=== PATIENT | female | born 1945 | race Caucasian/White ===

== ENCOUNTER 2019-12-06 20:18 | Emergency (ER) | payer MEDICARE, BC ==
[2019-12-06] MEDS: Sodium Chloride 0.9% 1,000 ML IV ONE (20:53)
[2019-12-06] MEDS: Ondansetron 4 MG/2 ML SDV IVPUSH ONE (20:53)
[2019-12-06] MEDS: Ketorolac 30 MG/ML SDV IVPUSH ONE (20:53)
--- NOTE | 2019-12-06 20:57 | EDM.PDOC ---
ED HPI GENERAL MEDICAL PROBLEM - General Chief Complaint: General Stated Complaint: nausea, abdominal pain Time Seen by Provider: 12/06/19 20:21 Source of Information: Reports: Patient History Limitations: Reports: No Limitations - History of Present Illness INITIAL COMMENTS - FREE TEXT/NARRATIVE: Pt seen in clinic today for UTI Started on Macrobid Now with N/V and mild flank pain No fever Onset: Today, Gradual Duration: Intermittent Location: Reports: Generalized Associated Symptoms: Reports: Nausea/Vomiting Lower Abdominal Pain Score (Numeric/FACES): 8 - Related Data Allergies Allergy/AdvReac Type Severity Reaction Status Date / Time No Known Drug Allergies Allergy Unknown unknown Verified 12/06/19 20:23 Home Meds: Home Meds LORazepam [Lorazepam] 0.5 mg PO ASDIRECTED PRN 12/06/19 [History] Levothyroxine [Synthroid] 88 mcg PO DAILY 12/06/19 [History] Multivitamin [Daily Multiple Vitamin] 1 tab PO DAILY 12/06/19 [History] Nitrofurantoin Monohyd/M-Cryst [Macrobid 100 mg Capsule] 100 mg PO BID 12/06/19 [History] traZODone HCl [Trazodone HCl] 100 mg PO BEDTIME 12/06/19 [History] Past Medical History HEENT History: Reports: None Psychiatric History: Reports: Anxiety Endocrine/Metabolic History: Reports: Hyperthyroidism Dermatologic History: Reports: Eczema - Past Surgical History GI Surgical History: Reports: Bariatric Procedure, Cholecystectomy Female Surgical History: Reports: Hysterectomy Social & Family History - Tobacco Use Smoking Status *Q: Never Smoker Second Hand Smoke Exposure: No - Caffeine Use Caffeine Use: Reports: Coffee - Recreational Drug Use Recreational Drug Use: No ED ROS GENERAL - Review of Systems Review Of Systems: See Below GI/Abdominal: Reports: Abdominal Pain, Nausea, Vomiting : Reports: Flank Pain ED EXAM, GENERAL - Physical Exam Exam: See Below Exam Limited By: No Limitations General Appearance: Alert, WD/WN, Mild Distress Throat/Mouth: Normal Oropharynx Respiratory/Chest: Lungs Clear Cardiovascular: Regular Rate, Rhythm GI/Abdominal: Tender Back Exam: CVA Tenderness (R) Course - Vital Signs Last Recorded V/S: Last Vital Signs Temp 98.0 F 12/06/19 20:19 Pulse 75 12/06/19 20:19 Resp 14 12/06/19 20:19 BP 151/82 H 12/06/19 20:19 Pulse Ox 97 12/06/19 20:19 - Orders/Labs/Meds Orders: Active Orders 24 hr Category Date Time Status Sodium Chloride 0.9% [Normal Saline] 1,000 ml Med 12/06/19 20:46 Active IV .BOLUS Medication Orders Sodium Chloride (Normal Saline) 1,000 mls @ 1,000 mls/hr IV .BOLUS ONE Stop: 12/06/19 21:45 Last Admin: 12/06/19 20:53 Dose: 1,000 mls/hr Documented by: VERITO Labs: Laboratory Tests 12/06/19 12/06/19 Range/Units 20:25 20:25 WBC 7.8 (4.0-10.2) K/uL RBC 4.53 (3.77-5.09) M/uL Hgb 12.3 (11.7-15.5) g/dL Hct 39.4 (34.0-46.0) % MCV 87.0 D (84.0-98.0) fL MCH 27.2 L (28.2-33.3) pg MCHC 31.2 L (31.7-36.0) g/dL RDW 14.9 H (11.2-14.1) % Plt Count 244 (150-350) K/uL Neut % (Auto) 87.2 H (45.0-80.0) % Lymph % (Auto) 8.3 L (10.0-50.0) % [place] % (Auto) 4.4 (2.0-14.0) % Eos % (Auto) 0.0 (0.0-5.0) % Baso % (Auto) 0.1 (0.0-2.0) % Neut # (Auto) 6.76 (1.40-7.00) K/uL Lymph # (Auto) 0.64 (0.50-3.50) K/uL [place] # (Auto) 0.34 (0.00-1.00) K/uL Eos # (Auto) 0.00 (0.00-0.50) K/uL Baso # (Auto) 0.01 (0.00-0.20) K/uL Sodium 139 (136-145) mmol/L Potassium 4.1 (3.5-5.1) mmol/L Chloride 102 (98-107) mmol/L Carbon Dioxide 24.0 (21.0-32.0) mmol/L BUN 12 (7-18) mg/dL Creatinine 0.99 (0.51-1.17) mg/dL Est Cr Clr Drug Dosing 44.35 mL/min Estimated GFR (MDRD) 55 mL/min Glucose 149 H (74-106) mg/dL Calcium 9.0 (8.5-10.1) mg/dL Meds: Medications Generic Name Dose Route Start Last Admin Trade Name Freq PRN Reason Stop Dose Admin Sodium Chloride 1,000 mls @ 1,000 mls/hr 12/06/19 20:46 12/06/19 20:53 Normal Saline IV 12/06/19 21:45 1,000 mls/hr .BOLUS ONE Administration Discontinued Medications Generic Name Dose Route Start Last Admin Trade Name Freq PRN Reason Stop Dose Admin Ketorolac Tromethamine 30 mg 12/06/19 20:46 12/06/19 20:53 Toradol IVPUSH 12/06/19 20:47 30 mg ONETIME ONE Administration Ondansetron HCl 8 mg 12/06/19 20:47 12/06/19 20:53 Zofran IVPUSH 12/06/19 20:48 8 mg ONETIME ONE Administration - Re-Assessments/Exams Free Text/Narrative Re-Assessment/Exam: 12/06/19 20:56 See lab-WNL Pt given 1 L NS, Zofran 8 mg IV, Toradol 30 mg IV and Rocephin 1 gm IV in ER Follow up in clinic in AM Departure - Departure Time of Disposition: 21:00 Disposition: Home, Self-Care 01 Clinical Impression: UTI, Urinary tract infectious disease - Discharge Information *PRESCRIPTION DRUG MONITORING PROGRAM REVIEWED*: Not Applicable *COPY OF PRESCRIPTION DRUG MONITORING REPORT IN PATIENT COURTNEY: Not Applicable Instructions: Urinary Tract Infection, Adult Referrals: Radha Jovel PA-C [Primary Care Provider] - Additional Instructions: Follow up in clinic in AM Sepsis Event Note (ED) - Evaluation Sepsis Screening Result: No Definite Risk - Focused Exam Vital Signs: Vital Signs Temp Pulse Resp BP Pulse Ox 12/06/19 20:19 98.0 F 75 14 151/82 H 97 - My Orders Last 24 Hours: My Active Orders 12/06/19 20:46 Sodium Chloride 0.9% [Normal Saline] 1,000 ml IV .BOLUS - Assessment/Plan Last 24 Hours: My Active Orders 12/06/19 20:46 Sodium Chloride 0.9% [Normal Saline] 1,000 ml IV .BOLUS
[2019-12-06] MEDS ORDERED: Sodium Chloride 0.9% 10 ML Syringe FLUSH PRN (21:02)
[2019-12-06] MEDS: cefTRIAXone 1 GM in Sodium Chloride 0.9% 100 ML IV ONE (21:10)
== END 2019-12-06 22:40 | disposition home or self-care (01) ==
LOC: LL.ED 20:18
DX: N39.0 Urinary tract infection, site not specified (principal); F41.9 Anxiety disorder, unspecified; E05.90 Thyrotoxicosis, unspecified without thyrotoxic crisis or storm; Z79.899 Other long term (current) drug therapy
CPT/HCPCS: 36415; 80048; 85025; 96365; 96375; 99283; 99284-25; J0696; J1885; J2405; J7030; J7050